=== PATIENT | female | born 1945 | race African-American/Black ===

== ENCOUNTER 2024-08-04 11:32 | Emergency (ER) | payer MEDICARE, MEDICAID ==
[~2024-08-04] VITALS: Ht 162.6 cm; Wt 51.0 kg
[2024-08-04] VITALS (12 sets, daily range): BP systolic 127–181; BP diastolic 60–118
[~2024-08-04 11:32] MED LIST: AMLOD/BENAZP1 CA4 PO; ASPIRIN LOW DOS81 M2 PO; B12-ACTIVE1 MG PO; CLOPIDOGREL75 MG PO; CREON6000 UNIT PO; GABAPENTIN300 MG PO; GLIPIZIDE10 MG PO; HYDROCHLOROT12.5 MG PO; HYDROXYZ HCL10 MG PO; JANUVIA100 MG PO; LEVOTHYROXIN50 MCG PO; LIPITOR20 M1 PO; MAG OXIDE400 MG PO; METAMUCIL0.52 G1 PO; OMEPRAZOLE20 M2 PO; SODIUM BICAR325 MG PO; SURFAK240 MG/CAP PO; TRAMADOL HCL50 MG PO
[2024-08-04] MEDS ORDERED: [UNRECOGNIZED DRUG - CODE] PO (12:03)
[2024-08-04] MEDS ORDERED: D350 MC1 PO (12:05)
[2024-08-04] MEDS ORDERED: DULOXETINE HCL60 MG PO (12:06)
[2024-08-04] MEDS ORDERED: CARVEDILOL3.125 MG PO (12:07)
[2024-08-04] MEDS ORDERED: PROTONIX40 M2 PO (12:09)
[2024-08-04] MEDS ORDERED: SIMVASTATIN10 MG PO (12:10)
[2024-08-04] MEDS ORDERED: ISOSORB MONO10 MG PO (12:13)
[2024-08-04] MEDS ORDERED: LISINOPRIL2.5 MG PO (12:16)
[2024-08-04] MEDS ORDERED: SOLIQUA 100/331 INJ (12:16)
[2024-08-04 12:22] LABS: EOS% 2.6 % (0-8); HEMATOCRIT 32.3 % (37.0-47.0); HEMOGLOBIN 10.1 g/dl (12.0-16.0); IMMATURE GRANULOCYTES 0.2 % (0.0-5.0); LYMPH% 25.6 % (15-41); MEAN CELL VOLUME 99.4 fL CALC (80.0-100.0); MEAN CORPUSCULAR HGB 31.1 pG CALC (26.0-32.0); MEAN CORPUSCULAR HGB CONC 31.3 g/dL CAL (32.0-36.0); MONO% 9.7 % (2-13); NEUT# 3.02 thou/uL (2.00-7.15); NEUT% 60.9 % (42-76); RED BLOOD COUNT 3.25 mill/uL (4.20-5.60); RED CELL DISTRI WIDTH 14.7 % (11.5-15.5)
[2024-08-04 12:57] LABS: CREATININE 1.8 mg/dL (0.5-1.0)
[2024-08-04 13:06] LABS: POTASSIUM 5.3 mmol/l (3.5-5.1)
[2024-08-04] MEDS ORDERED: GLUCAGON HCL (Rdna) 1 MG VIAL IM ONE (13:35)
[2024-08-04] MEDS ORDERED: TRAMADOL HYDROC50 M1 PO (13:55)
== END 2024-08-04 14:22 | disposition home or self-care (01) ==
LOC: ED 11:32
PROVIDERS: Family Medicine
DX: E11.42 Type 2 diabetes mellitus with diabetic polyneuropathy (principal); I10 Essential (primary) hypertension; Z79.4 Long term (current) use of insulin; Z79.01 Long term (current) use of anticoagulants
CPT/HCPCS: J1610